=== PATIENT | male | born 1940 | race Caucasian/White ===

== ENCOUNTER 2019-05-18 14:42 | Inpatient (IN) ==
[2019-05-18] MEDS ORDERED: Naloxone 0.4 MG/ML INJ IVP PRN (15:00)
[2019-05-18] MEDS ORDERED: Ondansetron ODT 4 MG TAB.RAPDIS SL PRN (15:00)
[2019-05-18] MEDS: Aspirin Enteric Coated 81 MG Tablet PO SCH (17:07)
[2019-05-18] MEDS: *HR* Heparin 5,000 UNIT/ML VIAL SQ SCH (17:07)
[2019-05-19 04:49] LABS: Basophils # 0.1 K/mcL (0.0-0.2); Basophils % 1.2 %; Eosinophils # 0.2 K/mcL (0.0-0.6); Eosinophils % 2.9 %; Hematocrit 39.4 % (37.5-50.1); Hemoglobin 13.5 g/dL (12.9-16.9); Immature Granulocytes % 0.2 % (0-4); Lymphocytes # 1.5 K/mcL (0.6-4.6); Lymphocytes % 29.4 %; Mean Corpuscular HGB Conc 34.3 g/dL (31.6-35.5); Mean Corpuscular Volume 90.6 fL (83.0-100.0); Monocytes # 0.4 K/mcL (0.0-1.3); Monocytes % 7.8 %; Platelet Count 151 K/mcL (140-400); Red Blood Count 4.35 M/mcL (4.19-5.50); Red Cell Distribution Width 12.6 % (11.5-14.5); Segmented Neutrophils % 58.5 %; White Blood Count 5.1 K/mcL (4.3-11.1)
[2019-05-19 05:00] LABS: Prothrombin Time 11.3 Seconds (9.4-12.1)
[2019-05-19 05:07] LABS: BUN/Creatinine Ratio 16 (6-26); Blood Urea Nitrogen 17 mg/dL (8-23); Calcium 8.9 mg/dL (8.6-10.3); Carbon Dioxide 25 mEq/L (23-29); Chloride 109 mEq/L (98-107); Glucose 95 mg/dL (70-105); Osmolality,Calculated 291 (280-300); Potassium 3.6 mEq/L (3.5-5.1); Sodium 140 mEq/L (136-145); eGFR For African Americans > 60 (> 60); eGFR For Non-African Americans > 60 (> 60)
[2019-05-19] MEDS: *HR* Heparin 5,000 UNIT/ML VIAL SQ SCH ×2 (05:34→17:22)
[2019-05-19] MEDS: Aspirin Enteric Coated 81 MG Tablet PO SCH (07:51)
[2019-05-19] MEDS ORDERED: *HR* Heparin 10,000 UNIT/10 ML VIAL ONE (09:16)
[2019-05-19] MEDS ORDERED: 0.9 % Sodium Chloride 1,000 ML ONE ×2 (09:16→09:22)
[2019-05-19] MEDS ORDERED: Nitroglycerin 1,000 MCG/10 ML VIAL IV ONE (09:16)
[2019-05-19] MEDS ORDERED: Verapamil 5 MG/2 ML VIAL ONE (09:16)
[2019-05-19] MEDS ORDERED: ISOVUE-370 200 ML INFUS..BTL ONE (09:16)
[2019-05-19] MEDS ORDERED: Heparin 1,000 UNITS/500 mL 500 ML ONE (09:16)
[2019-05-19] MEDS ORDERED: *HR* Midazolam HCl 2 MG/2 ML VIAL ONE (09:32)
[2019-05-19] MEDS ORDERED: Nitroglycerin 0.4 MG TAB.SUBL SL PRN (10:11)
[2019-05-19] MEDS: Acetaminophen 325 MG TABLET PO PRN (11:21)
[2019-05-19] MEDS: Ranolazine 500 MG TAB.ER.12H PO SCH (21:45)
[2019-05-20] MEDS: *HR* Heparin 5,000 UNIT/ML VIAL SQ SCH (05:52)
[2019-05-20] MEDS: Ranolazine 500 MG TAB.ER.12H PO SCH ×2 (09:24→20:35)
[2019-05-20] MEDS: Aspirin 81 MG TAB.CHEW PO SCH (09:25)
[2019-05-20] MEDS: Aspirin Enteric Coated 81 MG Tablet PO SCH (09:25)
[2019-05-20] MEDS ORDERED: *HR* Heparin 5,000 UNIT/ML VIAL IVP PRN ×2 (09:26)
[2019-05-20 10:27] LABS: Heparin anti-factor XA UFH 0.04 IU/mL (0.30-0.70); Prothrombin Time 10.8 Seconds (9.4-12.1)
[2019-05-20] MEDS: Heparin 25,000 UNIT/250 ML D5W 25,000 UNIT/250 ML IV.SOLN IVC SCH (11:19)
[2019-05-20 12:45] LABS: Hematocrit 42.4 % (37.5-50.1); Hemoglobin 14.5 g/dL (12.9-16.9); Mean Corpuscular HGB Conc 34.2 g/dL (31.6-35.5); Mean Corpuscular Hemoglobin 30.5 pg (28.0-33.3); Mean Corpuscular Volume 89.3 fL (83.0-100.0); Mean Platelet Volume 9.3 fL (9.4-12.4); Platelet Count 185 K/mcL (140-400); Red Blood Count 4.75 M/mcL (4.19-5.50); Red Cell Distribution Width 12.8 % (11.5-14.5); White Blood Count 5.8 K/mcL (4.3-11.1)
[2019-05-21] MEDS: Aspirin 81 MG TAB.CHEW PO SCH (08:38)
[2019-05-21] MEDS: Ranolazine 500 MG TAB.ER.12H PO SCH ×2 (08:38→23:15)
[2019-05-21 10:50] LABS: Chol/HDL Ratio 4.5 (0-4.9)
[2019-05-21 11:18] LABS: Estimated Average Glucose 120 mg/dl
[2019-05-21] MEDS: Heparin 25,000 UNIT/250 ML D5W 25,000 UNIT/250 ML IV.SOLN IVC SCH (13:23)
[2019-05-21 13:55] LABS: Bilirubin,Urine Negative (Negative); Blood,Urine Negative (Negative); Clarity,Urine Clear (Clear); Color,Urine Yellow (Yellow); Glucose,Urine (UA) Normal (Normal); Ketones,Urine Negative (Negative); Leukocyte Esterase,Urine Negative (Negative); Nitrite,Urine Negative (Negative); Protein,Urine Negative (Neg-Trace); Specific Gravity,Urine 1.012 (1.010-1.025); Urobilinogen,Urine Normal (Normal)
[2019-05-21] MEDS ORDERED: Chlorhexidine Rinse 15 ML MOUTHWASH MM SCH (21:00)
[2019-05-22] MEDS: Aspirin 81 MG TAB.CHEW PO SCH (08:35)
[2019-05-22] MEDS: Ranolazine 500 MG TAB.ER.12H PO SCH ×2 (08:35→21:19)
[2019-05-22] MEDS: Heparin 25,000 UNIT/250 ML D5W 25,000 UNIT/250 ML IV.SOLN IVC SCH (16:12)
[2019-05-23] MEDS: Ranolazine 500 MG TAB.ER.12H PO SCH ×2 (08:20→20:44)
[2019-05-23] MEDS: Aspirin 81 MG TAB.CHEW PO SCH (08:21)
[2019-05-23] MEDS ORDERED: Perflutren Lipid Microsphere 1.3 ML in 0.9 % Sodium Chloride 8.7 ML IVP ONE (10:08)
[2019-05-23] MEDS: Heparin 25,000 UNIT/250 ML D5W 25,000 UNIT/250 ML IV.SOLN IVC SCH (17:50)
[2019-05-24] MEDS: Ranolazine 500 MG TAB.ER.12H PO SCH ×2 (08:13→22:05)
[2019-05-24] MEDS: Aspirin 81 MG TAB.CHEW PO SCH (08:13)
[2019-05-24] MEDS: Heparin 25,000 UNIT/250 ML D5W 25,000 UNIT/250 ML IV.SOLN IVC SCH (22:06)
[2019-05-25] MEDS: Aspirin 81 MG TAB.CHEW PO SCH (08:02)
[2019-05-25] MEDS: Ranolazine 500 MG TAB.ER.12H PO SCH ×2 (08:02→20:47)
[2019-05-25] MEDS: Chlorhexidine Rinse 15 ML MOUTHWASH MM SCH (20:47)
[2019-05-26] MEDS: Heparin 25,000 UNIT/250 ML D5W 25,000 UNIT/250 ML IV.SOLN IVC SCH (01:43)
[2019-05-26 03:10] LABS: Basophils % 0.8 %; Eosinophils # 0.3 K/mcL (0.0-0.6); Eosinophils % 5.8 %; Hematocrit 41.5 % (37.5-50.1); Hemoglobin 14.2 g/dL (12.9-16.9); Immature Granulocytes % 0.4 % (0-4); Lymphocytes # 1.5 K/mcL (0.6-4.6); Lymphocytes % 28.5 %; Mean Corpuscular HGB Conc 34.2 g/dL (31.6-35.5); Mean Corpuscular Hemoglobin 30.9 pg (28.0-33.3); Mean Corpuscular Volume 90.4 fL (83.0-100.0); Mean Platelet Volume 9.6 fL (9.4-12.4); Monocytes # 0.6 K/mcL (0.0-1.3); Monocytes % 11.5 %; Neutrophils # 2.8 K/mcL (1.6-8.9); Platelet Count 157 K/mcL (140-400); Red Blood Count 4.59 M/mcL (4.19-5.50); Red Cell Distribution Width 12.9 % (11.5-14.5); White Blood Count 5.3 K/mcL (4.3-11.1)
[2019-05-26 03:30] LABS: BUN/Creatinine Ratio 17 (6-26); Blood Urea Nitrogen 21 mg/dL (8-23); Calcium 9.1 mg/dL (8.6-10.3); Carbon Dioxide 25 mEq/L (23-29); Chloride 104 mEq/L (98-107); Glucose 97 mg/dL (70-105); Osmolality,Calculated 291 (280-300); Potassium 3.8 mEq/L (3.5-5.1); Sodium 139 mEq/L (136-145); eGFR For African Americans > 60 (> 60); eGFR For Non-African Americans 57 (> 60)
[2019-05-26] MEDS: Chlorhexidine Rinse 15 ML MOUTHWASH MM SCH ×2 (06:06→20:16)
[2019-05-26] MEDS ORDERED: Nitroglycerin 25 MG/250 ML INFUS..BTL IVC ONE (06:39)
[2019-05-26] MEDS ORDERED: NiCARdipine 2.5 MG/10 ML Syringe IVPB ONE (06:40)
[2019-05-26] MEDS ORDERED: *HR* Midazolam HCl 5 MG/5 ML VIAL IVP ONE (06:41)
[2019-05-26] MEDS ORDERED: *HR* FentaNYL (PF) 1,000 MCG/20 ML VIAL ONE (06:41)
[2019-05-26] MEDS ORDERED: *HR* Etomidate 20 MG/10 ML AMPUL IVP ONE (06:42)
[2019-05-26] MEDS ORDERED: *HR* Rocuronium Bromide 50 MG/5 ML VIAL ONE ×2 (06:42→10:10)
[2019-05-26] MEDS ORDERED: Calcium Gluconate 1,000 MG/10 ML VIAL ONE (06:42)
[2019-05-26] MEDS ORDERED: *HR* PHENYLEPHRINE 1,000 MCG/10 ML SYRINGE IVP ONE (06:42)
[2019-05-26] MEDS ORDERED: Protamine Sulfate 250 MG/25 ML VIAL IVP ONE (06:42)
[2019-05-26] MEDS ORDERED: Tranexamic Acid 1,000 MG/10 ML VIAL ONE ×2 (06:42→09:08)
[2019-05-26] MEDS ORDERED: Famotidine 20 MG/2 ML VIAL ONE (06:42)
[2019-05-26] MEDS ORDERED: Verapamil 5 MG/2 ML VIAL ONE (06:57)
[2019-05-26] MEDS ORDERED: Dextrose 50 % in Water (Vial) 30 ML, Sodium Bicarbonate 20 MEQ, Lidocaine 1% 5 ML, Insu... TH ONE ×3 (07:45)
[2019-05-26] MEDS ORDERED: Heparin 15,000 UNIT in 0.9 % Sodium Chloride 500 ML IV ONE (07:45)
[2019-05-26] MEDS ORDERED: Insulin Human Regular 100 UNIT in 0.9 % Sodium Chloride 100 ML IV PRN (07:45)
[2019-05-26] MEDS ORDERED: Norepinephrine 4 MG in 0.9 % Sodium Chloride 250 ML IVC PRN (07:45)
[2019-05-26] MEDS ORDERED: Dextrose 50 % in Water (Vial) 30 ML, Sodium Bicarbonate 20 MEQ, Potassium Chloride 15 M... TH ONE (07:45)
[2019-05-26 08:07] LABS: ABG Base Excess 1 mEq/L (-2 to 3); ABG Chloride 105 mEq/L (98-107); ABG Glucose 104 mg/dL (60-95); ABG HCO3 29 mEq/L (21-27); ABG Ionized Calcium 1.26 mmol/L (1.15-1.35); ABG Oxygen Saturation 95 % (95-98); ABG PCO2 60 mmHg (35-45); ABG PH 7.29 pH Units (7.32-7.45); ABG PO2 87 mmHg (85-104); ABG TCO2 31 mEq/L (20-26)
[2019-05-26 09:14] LABS: ABG Base Excess -1 mEq/L (-2 to 3); ABG Chloride 108 mEq/L (98-107); ABG Glucose 131 mg/dL (60-95); ABG HCO3 24 mEq/L (21-27); ABG Ionized Calcium 1.13 mmol/L (1.15-1.35); ABG Oxygen Saturation 100 % (95-98); ABG PCO2 43 mmHg (35-45); ABG PH 7.37 pH Units (7.32-7.45); ABG PO2 169 mmHg (85-104); ABG TCO2 26 mEq/L (20-26)
[2019-05-26] MEDS ORDERED: CeFAZolin Syr 2,000MG/20 ML 2,000 MG/20 ML SYRINGE IVPB ONE (09:26)
[2019-05-26 10:03] LABS: ABG Base Excess 1 mEq/L (-2 to 3); ABG Chloride 99 mEq/L (98-107); ABG Glucose 277 mg/dL (60-95); ABG HCO3 24 mEq/L (21-27); ABG Ionized Calcium 0.94 mmol/L (1.15-1.35); ABG Oxygen Saturation 100 % (95-98); ABG PCO2 35 mmHg (35-45); ABG PH 7.45 pH Units (7.32-7.45); ABG PO2 481 mmHg (85-104); ABG TCO2 25 mEq/L (20-26)
[2019-05-26 10:25] LABS: ABG Base Excess 1 mEq/L (-2 to 3); ABG Chloride 101 mEq/L (98-107); ABG Glucose 177 mg/dL (60-95); ABG HCO3 25 mEq/L (21-27); ABG Ionized Calcium 1.06 mmol/L (1.15-1.35); ABG Oxygen Saturation 100 % (95-98); ABG PCO2 38 mmHg (35-45); ABG PH 7.43 pH Units (7.32-7.45); ABG PO2 389 mmHg (85-104); ABG TCO2 26 mEq/L (20-26)
[2019-05-26 10:56] LABS: ABG Base Excess 1 mEq/L (-2 to 3); ABG Chloride 104 mEq/L (98-107); ABG Glucose 100 mg/dL (60-95); ABG HCO3 25 mEq/L (21-27); ABG Ionized Calcium 1.45 mmol/L (1.15-1.35); ABG Oxygen Saturation 100 % (95-98); ABG PCO2 40 mmHg (35-45); ABG PH 7.41 pH Units (7.32-7.45); ABG PO2 171 mmHg (85-104); ABG TCO2 27 mEq/L (20-26)
[2019-05-26] MEDS ORDERED: *HR* Promethazine 25 MG/ML VIAL IVP PRN (11:27)
[2019-05-26] MEDS ORDERED: Ondansetron 4 MG/2 ML VIAL IVP PRN (11:27)
[2019-05-26] MEDS ORDERED: Insulin Regular, Human 100 UNIT/ML IV PRN (11:27)
[2019-05-26] MEDS ORDERED: *HR* Dextrose 50 % in Water (Syg) 50 ML SYRINGE IVP PRN (11:27)
[2019-05-26] MEDS ORDERED: Potassium Chloride 40 MEQ/200 ML BAG IVPB PRN (11:27)
[2019-05-26] MEDS: Nitroglycerin 25 MG/250 ML INFUS..BTL IVC SCH ×2 (11:30→20:16)
[2019-05-26 12:01] LABS: Basophils # 0.1 K/mcL (0.0-0.2); Basophils % 0.7 %; Eosinophils # 0.3 K/mcL (0.0-0.6); Eosinophils % 3.1 %; Hematocrit 33.2 % (37.5-50.1); Immature Granulocytes % 0.5 % (0-4); Lymphocytes # 1.3 K/mcL (0.6-4.6); Lymphocytes % 14.6 %; Mean Corpuscular HGB Conc 34.6 g/dL (31.6-35.5); Mean Corpuscular Hemoglobin 30.3 pg (28.0-33.3); Mean Corpuscular Volume 87.6 fL (83.0-100.0); Mean Platelet Volume 9.2 fL (9.4-12.4); Monocytes # 0.8 K/mcL (0.0-1.3); Monocytes % 8.2 %; Neutrophils # 6.7 K/mcL (1.6-8.9); Platelet Count 108 K/mcL (140-400); Red Blood Count 3.79 M/mcL (4.19-5.50); Red Cell Distribution Width 12.8 % (11.5-14.5); Segmented Neutrophils % 72.9 %
[2019-05-26 12:03] LABS: Hemoglobin 11.5 g/dL (12.9-16.9)
[2019-05-26 12:05] LABS: White Blood Count 9.2 K/mcL (4.3-11.1)
[2019-05-26 12:12] LABS: INR 1.3
[2019-05-26 12:15] LABS: Activated Partial Thrombo Time 28.7 Seconds (26.0-36.0)
[2019-05-26 12:17] LABS: BUN/Creatinine Ratio 17 (6-26); Blood Urea Nitrogen 19 mg/dL (8-23); Calcium 8.9 mg/dL (8.6-10.3); Carbon Dioxide 26 mEq/L (23-29); Chloride 106 mEq/L (98-107); Glucose 60 mg/dL (70-105); Magnesium 2.4 mg/dL (1.6-2.6); Osmolality,Calculated 286 (280-300); Potassium 3.6 mEq/L (3.5-5.1); Sodium 138 mEq/L (136-145); eGFR For African Americans > 60 (> 60); eGFR For Non-African Americans > 60 (> 60)
[2019-05-26 12:26] LABS: ABG Base Excess 3 mEq/L (-2 to 3); ABG HCO3 27 mEq/L (21-27); ABG Oxygen Saturation 100 % (95-98); ABG PCO2 39 mmHg (35-45); ABG PH 7.45 pH Units (7.32-7.45); ABG PO2 453 mmHg (85-104); ABG TCO2 28 mEq/L (20-26); Blood Gas Modality ASSIST CONTROL; Blood Gas VT 600 cc
[2019-05-26 12:27] LABS: Prothrombin Time 15.2 Seconds (9.4-12.1)
[2019-05-26] MEDS: niCARdipine 20 MG/200 ML MLS IVC SCH ×6 (12:37→23:10)
[2019-05-26] MEDS: Insulin Human Regular 100 UNIT in 0.9 % Sodium Chloride 100 ML IVC SCH ×2 (12:37→14:13)
[2019-05-26] MEDS: Aspirin 81 MG TAB.CHEW PO SCH (12:37)
[2019-05-26] MEDS: Norepinephrine 4 MG in 0.9 % Sodium Chloride 250 ML IVC SCH (12:38)
[2019-05-26] MEDS: 0.9 % Sodium Chloride 1,000 ML IVC SCH (12:52)
[2019-05-26] MEDS ORDERED: *HR* Heparin 10,000 UNIT/10 ML VIAL IV ONE (13:14)
[2019-05-26] MEDS ORDERED: Tranexamic Acid 1,000 MG/10 ML VIAL IVPB ONE (13:14)
[2019-05-26] MEDS ORDERED: Albumin Human 25% 25 GM/100 ML IV.SOLN IV ONE (13:14)
[2019-05-26] MEDS ORDERED: *HR* Phenylephrine 10 MG/ML VIAL IVC ONE (13:14)
[2019-05-26] MEDS ORDERED: *HR* Magnesium Sulfate 2 GM/50 ML PIGGYBACK IVPB ONE (13:14)
[2019-05-26] MEDS ORDERED: Mannitol 25% vial 12.5 GM/50 ML VIAL IVP ONE (13:14)
[2019-05-26] MEDS ORDERED: Lidocaine 2% Syringe 100 MG/5 ML IV ONE (13:14)
[2019-05-26] MEDS: *HR* FentaNYL (PF) 100 MCG/2 ML VIAL IVP PRN ×4 (13:49→18:42)
[2019-05-26] MEDS: *HR* OxyCODONE/APAP 5/325 TABLET PO PRN ×2 (14:04→19:16)
[2019-05-26] MEDS ORDERED: *HR* Vecuronium 10 MG VIAL IVP ONE (14:10)
[2019-05-26] MEDS ORDERED: *HR* LORazepam 2 MG/ML VIAL IVP PRN (14:10)
[2019-05-26 17:16] LABS: ABG Base Excess -1 mEq/L (-2 to 3); ABG HCO3 24 mEq/L (21-27); ABG Oxygen Saturation 99 % (95-98); ABG PCO2 39 mmHg (35-45); ABG PO2 132 mmHg (85-104); ABG TCO2 25 mEq/L (20-26); Blood Gas VT 600 cc
[2019-05-26 21:44] LABS: ABG Base Excess -2 mEq/L (-2 to 3); ABG HCO3 23 mEq/L (21-27); ABG Oxygen Saturation 97 % (95-98); ABG PCO2 38 mmHg (35-45); ABG PH 7.38 pH Units (7.32-7.45); ABG PO2 91 mmHg (85-104); ABG TCO2 24 mEq/L (20-26); Blood Gas Modality CPAP/PS; Blood Gas Pressure Support 8 cm H2O
[2019-05-26 23:55] LABS: ABG Base Excess 0 mEq/L (-2 to 3); ABG HCO3 25 mEq/L (21-27); ABG Oxygen Saturation 92 % (95-98); ABG PCO2 40 mmHg (35-45); ABG PO2 65 mmHg (85-104); ABG TCO2 26 mEq/L (20-26)
[2019-05-27] MEDS: 0.9 % Sodium Chloride 1,000 ML IVC SCH (03:10)
[2019-05-27 04:09] LABS: Basophils % 0.2 %; Hemoglobin 10.7 g/dL (12.9-16.9); Immature Granulocytes % 0.3 % (0-4); Lymphocytes # 0.7 K/mcL (0.6-4.6); Lymphocytes % 7.1 %; Mean Corpuscular HGB Conc 34.5 g/dL (31.6-35.5); Mean Corpuscular Hemoglobin 31.1 pg (28.0-33.3); Mean Corpuscular Volume 90.1 fL (83.0-100.0); Mean Platelet Volume 9.6 fL (9.4-12.4); Monocytes % 10.7 %; Neutrophils # 7.5 K/mcL (1.6-8.9); Platelet Count 122 K/mcL (140-400); Red Blood Count 3.44 M/mcL (4.19-5.50); Red Cell Distribution Width 12.9 % (11.5-14.5); Segmented Neutrophils % 81.7 %; White Blood Count 9.2 K/mcL (4.3-11.1)
[2019-05-27 04:26] LABS: BUN/Creatinine Ratio 19 (6-26); Blood Urea Nitrogen 21 mg/dL (8-23); Calcium 8.1 mg/dL (8.6-10.3); Carbon Dioxide 23 mEq/L (23-29); Chloride 105 mEq/L (98-107); Glucose 139 mg/dL (70-105); Osmolality,Calculated 289 (280-300); Potassium 4.2 mEq/L (3.5-5.1); Sodium 137 mEq/L (136-145); eGFR For African Americans > 60 (> 60); eGFR For Non-African Americans > 60 (> 60)
[2019-05-27] MEDS: Nitroglycerin 25 MG/250 ML INFUS..BTL IVC SCH ×3 (04:54→23:42)
[2019-05-27] MEDS: niCARdipine 20 MG/200 ML MLS IVC SCH ×5 (05:04→23:42)
[2019-05-27] MEDS ORDERED: Ibuprofen 400 MG TABLET PO PRN (07:29)
[2019-05-27] MEDS: Aspirin 81 MG TAB.CHEW PO SCH (08:37)
[2019-05-27] MEDS: Chlorhexidine Rinse 15 ML MOUTHWASH MM SCH ×2 (08:37→20:19)
[2019-05-27] MEDS ORDERED: Valsartan 160 MG TABLET PO SCH (09:00)
[2019-05-27] MEDS ORDERED: Pantoprazole 40 MG VIAL IVP SCH (09:00)
[2019-05-27] MEDS ORDERED: *HR* Dextrose 50 % in Water (Syg) 50 ML SYRINGE IVP PRN (15:27)
[2019-05-27] MEDS ORDERED: Dextrose Gel 15 GM/37.5 ML TUBE PO PRN ×2 (15:27)
[2019-05-27] MEDS ORDERED: D5% in Water 1,000 ML IVC PRN (15:27)
[2019-05-27] MEDS: Insulin LISPRO 300 UNITS/3 ML VIAL SQ SCH (16:24)
[2019-05-27] MEDS: Norepinephrine 4 MG in 0.9 % Sodium Chloride 250 ML IVC SCH (20:11)
[2019-05-27] MEDS: Acetaminophen 325 MG TABLET PO PRN (20:18)
[2019-05-27] MEDS ORDERED: Insulin LISPRO 300 UNITS/3 ML VIAL SQ SCH (21:00)
[2019-05-28 05:12] LABS: Basophils % 0.4 %; Eosinophils # 0.1 K/mcL (0.0-0.6); Hematocrit 29.2 % (37.5-50.1); Hemoglobin 9.9 g/dL (12.9-16.9); Immature Granulocytes % 0.5 % (0-4); Lymphocytes # 1.2 K/mcL (0.6-4.6); Lymphocytes % 15.7 %; Mean Corpuscular HGB Conc 33.9 g/dL (31.6-35.5); Mean Corpuscular Hemoglobin 30.5 pg (28.0-33.3); Mean Corpuscular Volume 89.8 fL (83.0-100.0); Mean Platelet Volume 9.5 fL (9.4-12.4); Monocytes # 0.9 K/mcL (0.0-1.3); Neutrophils # 5.5 K/mcL (1.6-8.9); Platelet Count 102 K/mcL (140-400); Red Blood Count 3.25 M/mcL (4.19-5.50); Segmented Neutrophils % 70.4 %; White Blood Count 7.8 K/mcL (4.3-11.1)
[2019-05-28] MEDS: niCARdipine 20 MG/200 ML MLS IVC SCH (05:22)
[2019-05-28] MEDS: Acetaminophen 325 MG TABLET PO PRN ×2 (05:24→16:13)
[2019-05-28 05:31] LABS: BUN/Creatinine Ratio 18 (6-26); Blood Urea Nitrogen 17 mg/dL (8-23); Calcium 8.2 mg/dL (8.6-10.3); Carbon Dioxide 25 mEq/L (23-29); Chloride 102 mEq/L (98-107); Glucose 114 mg/dL (70-105); Osmolality,Calculated 276 (280-300); Potassium 3.8 mEq/L (3.5-5.1); Sodium 132 mEq/L (136-145); eGFR For African Americans > 60 (> 60); eGFR For Non-African Americans > 60 (> 60)
[2019-05-28] MEDS: Insulin LISPRO 300 UNITS/3 ML VIAL SQ SCH ×4 (07:47→22:00)
[2019-05-28] MEDS: Chlorhexidine Rinse 15 ML MOUTHWASH MM SCH ×2 (08:55→19:40)
[2019-05-28] MEDS: Aspirin 81 MG TAB.CHEW PO SCH (08:57)
[2019-05-28] MEDS ORDERED: Ondansetron ODT 4 MG TAB.RAPDIS SL PRN (09:34)
[2019-05-28] MEDS ORDERED: Nitroglycerin 0.4 MG TAB.SUBL SL PRN (09:34)
[2019-05-28] MEDS ORDERED: Ibuprofen 400 MG TABLET PO PRN (09:34)
[2019-05-28] MEDS ORDERED: Insulin Regular, Human 100 UNIT/ML IV PRN (09:34)
[2019-05-28] MEDS ORDERED: Amiodarone Premix 360 MG/200 ML BAG IVC ONE ×2 (14:27→14:30)
[2019-05-28] MEDS ORDERED: Amiodarone Premix 360 MG/200 ML BAG IVC SCH (14:30)
[2019-05-29 01:29] LABS: Basophils % 0.3 %; Eosinophils # 0.1 K/mcL (0.0-0.6); Eosinophils % 0.8 %; Hematocrit 30.1 % (37.5-50.1); Hemoglobin 10.3 g/dL (12.9-16.9); Immature Granulocytes % 0.3 % (0-4); Lymphocytes # 1.3 K/mcL (0.6-4.6); Lymphocytes % 14.8 %; Mean Corpuscular HGB Conc 34.2 g/dL (31.6-35.5); Mean Corpuscular Hemoglobin 30.5 pg (28.0-33.3); Mean Corpuscular Volume 89.1 fL (83.0-100.0); Mean Platelet Volume 9.8 fL (9.4-12.4); Monocytes # 1.2 K/mcL (0.0-1.3); Monocytes % 13.2 %; Neutrophils # 6.3 K/mcL (1.6-8.9); Platelet Count 143 K/mcL (140-400); Red Blood Count 3.38 M/mcL (4.19-5.50); Red Cell Distribution Width 12.9 % (11.5-14.5); Segmented Neutrophils % 70.6 %
[2019-05-29 01:54] LABS: BUN/Creatinine Ratio 20 (6-26); Blood Urea Nitrogen 21 mg/dL (8-23); Calcium 8.3 mg/dL (8.6-10.3); Carbon Dioxide 25 mEq/L (23-29); Chloride 96 mEq/L (98-107); Glucose 135 mg/dL (70-105); Osmolality,Calculated 273 (280-300); Potassium 3.7 mEq/L (3.5-5.1); Sodium 129 mEq/L (136-145); eGFR For African Americans > 60 (> 60); eGFR For Non-African Americans > 60 (> 60)
[2019-05-29] MEDS: Insulin LISPRO 300 UNITS/3 ML VIAL SQ SCH ×4 (08:10→20:09)
[2019-05-29] MEDS: Aspirin 81 MG TAB.CHEW PO SCH (08:12)
[2019-05-29] MEDS: Chlorhexidine Rinse 15 ML MOUTHWASH MM SCH ×2 (08:12→21:47)
[2019-05-29] MEDS: Acetaminophen 325 MG TABLET PO PRN (08:14)
[2019-05-29] MEDS ORDERED: Ibuprofen 400 MG TABLET PO PRN (10:25)
[2019-05-29] MEDS: Amiodarone Premix 150 MG/100 ML BAG IVPB ONE ×2 (10:49→11:58)
[2019-05-29] MEDS: MOM Conc 10 ML UD.LIQ PO SCH (11:12)
[2019-05-29] MEDS: Melatonin 3 MG TABLET PO SCH (21:48)
[2019-05-30 02:48] LABS: Basophils % 0.4 %; Eosinophils # 0.1 K/mcL (0.0-0.6); Eosinophils % 1.7 %; Hematocrit 28.3 % (37.5-50.1); Hemoglobin 10.2 g/dL (12.9-16.9); Immature Granulocytes % 0.3 % (0-4); Lymphocytes # 1.2 K/mcL (0.6-4.6); Mean Corpuscular Hemoglobin 30.6 pg (28.0-33.3); Mean Platelet Volume 9.8 fL (9.4-12.4); Monocytes % 14.5 %; Neutrophils # 4.5 K/mcL (1.6-8.9); Platelet Count 194 K/mcL (140-400); Red Blood Count 3.33 M/mcL (4.19-5.50); Red Cell Distribution Width 12.6 % (11.5-14.5); Segmented Neutrophils % 65.1 %; White Blood Count 6.9 K/mcL (4.3-11.1)
[2019-05-30 03:09] LABS: BUN/Creatinine Ratio 19 (6-26); Blood Urea Nitrogen 18 mg/dL (8-23); Calcium 8.3 mg/dL (8.6-10.3); Carbon Dioxide 24 mEq/L (23-29); Chloride 93 mEq/L (98-107); Glucose 128 mg/dL (70-105); Osmolality,Calculated 264 (280-300); Potassium 3.6 mEq/L (3.5-5.1); Sodium 125 mEq/L (136-145); eGFR For African Americans > 60 (> 60); eGFR For Non-African Americans > 60 (> 60)
[2019-05-30] MEDS: Insulin LISPRO 300 UNITS/3 ML VIAL SQ SCH ×4 (07:56→20:02)
[2019-05-30] MEDS: Aspirin 81 MG TAB.CHEW PO SCH (08:01)
[2019-05-30] MEDS: MOM Conc 10 ML UD.LIQ PO SCH (08:01)
[2019-05-30] MEDS: Chlorhexidine Rinse 15 ML MOUTHWASH MM SCH ×2 (08:01→19:50)
[2019-05-30] MEDS: *HR* Amiodarone 200 MG TABLET PO SCH ×2 (10:32→19:50)
[2019-05-30] MEDS: Melatonin 3 MG TABLET PO SCH (19:50)
[2019-05-31 07:14] LABS: Basophils # 0.1 K/mcL (0.0-0.2); Basophils % 0.7 %; Eosinophils # 0.1 K/mcL (0.0-0.6); Eosinophils % 1.7 %; Hematocrit 31.9 % (37.5-50.1); Hemoglobin 11.1 g/dL (12.9-16.9); Immature Granulocytes % 0.4 % (0-4); Lymphocytes # 1.1 K/mcL (0.6-4.6); Lymphocytes % 15.1 %; Mean Corpuscular HGB Conc 34.8 g/dL (31.6-35.5); Mean Corpuscular Hemoglobin 30.9 pg (28.0-33.3); Mean Corpuscular Volume 88.9 fL (83.0-100.0); Mean Platelet Volume 9.6 fL (9.4-12.4); Monocytes # 1.1 K/mcL (0.0-1.3); Monocytes % 14.3 %; Neutrophils # 5.1 K/mcL (1.6-8.9); Platelet Count 331 K/mcL (140-400); Red Blood Count 3.59 M/mcL (4.19-5.50); Segmented Neutrophils % 67.8 %; White Blood Count 7.5 K/mcL (4.3-11.1)
[2019-05-31 07:23] LABS: BUN/Creatinine Ratio 15 (6-26); Blood Urea Nitrogen 19 mg/dL (8-23); Calcium 9.2 mg/dL (8.6-10.3); Carbon Dioxide 27 mEq/L (23-29); Chloride 98 mEq/L (98-107); Glucose 137 mg/dL (70-105); Osmolality,Calculated 282 (280-300); Sodium 134 mEq/L (136-145); eGFR For African Americans > 60 (> 60); eGFR For Non-African Americans 54 (> 60)
[2019-05-31 07:24] VITALS: BP 113/75
[2019-05-31] MEDS: Insulin LISPRO 300 UNITS/3 ML VIAL SQ SCH (08:11)
[2019-05-31] MEDS: Aspirin 81 MG TAB.CHEW PO SCH (08:12)
[2019-05-31] MEDS: Chlorhexidine Rinse 15 ML MOUTHWASH MM SCH (08:12)
[2019-05-31] MEDS: *HR* Amiodarone 200 MG TABLET PO SCH (08:12)
[2019-05-31] MEDS: MOM Conc 10 ML UD.LIQ PO SCH (08:14)
== END 2019-05-31 13:15 | disposition home or self-care (01) | DRG 234 ==
LOC: 2NENU → UNDODISIN 05-26 07:00 → ICNU 05-26 09:48 → 2NNU 05-28 10:05
PROVIDERS: ADMIT Internal Medicine; ATTEND Thoracic Surgery (Cardiothoracic Vascular Surgery)